=== PATIENT | female | born 1995 | race Caucasian/White ===

== ENCOUNTER 2016-12-13 07:36 | Emergency (ER) | payer SELFPAY ==
[2016-12-13 07:58] VITALS: BP 136/97
--- NOTE | 2016-12-13 08:39 | RAD ---
HISTORY: Subacute injury, left ankle pain COMPARISONS: May 20, 2015 VIEWS: 3, Frontal, lateral, and oblique views of the left ankle FINDINGS: BONE DENSITY: Normal. BONES: There is no displaced fracture. JOINTS: There is no arthropathy. ALIGNMENT: There is no dislocation. SOFT TISSUES: Unremarkable. OTHER FINDINGS: None. IMPRESSION: NO ACUTE OSSEOUS INJURY. IF SYMPTOMS PERSIST, RECOMMEND REPEAT IMAGING.
--- NOTE | 2016-12-13 09:13 | UC ---
Lower Extremity/Ankle HPI - HPI Summary HPI Summary: SLIPPED ON WET STAIRS 2 DAYS AGO INJURING LEFT ANKLE. HAS ORTHO APPT IN 2 DAYS BUT TODAY PAIN WAS WORSE SO CAME IN HERE. - History of Current Complaint Chief Complaint: UCLowerExtremity Stated Complaint: ANKLE INJURY Time Seen by Provider: 12/13/16 08:07 Hx Obtained From: Patient Hx Last Menstrual Period: 11/19/16 Onset/Duration: Sudden Onset, Lasting Days, Still Present Severity Initially: Moderate Severity Currently: Moderate Pain Intensity: 7 Pain Scale Used: 0-10 Numeric Aggravating Factor(s): Standing, Ambulation Alleviating Factor(s): Rest Able to Bear Weight: Yes - WITH PAIN - Allergies/Home Medications Allergies/Adverse Reactions: Allergies Allergy/AdvReac Type Severity Reaction Status Date / Time No Known Allergies Allergy Verified 12/13/16 07:46 Home Medications: Home Medications Acetaminophen TAB* [Tylenol TAB*] 500 mg PO TID PRN 12/13/16 [History Confirmed 12/13/16] PMH/Surg Hx/FS Hx/Imm Hx Endocrine History Of: Denies: Diabetes, Thyroid Disease, Hyperthyroidism, Hypothyroidism Cardiovascular History Of: Reports: Cardiac Disorders - murmur, Hypertension Denies: Pacemaker/ICD Respiratory History Of: Reports: Asthma Neurological History Of: Denies: TIA, Seizures Psychological History Of: Denies: Anxiety, Depression - Surgical History Surgical History: None - Family History Known Family History: Positive: Unknown - ADOPTED - DOES NOT KNOW FAM HX - Social History Alcohol Use: Occasionally Substance Use Type: None Smoking Status (MU): Never Smoked Tobacco Have You Smoked in the Last Year: No Review of Systems Constitutional: Negative Skin: Negative Respiratory: Negative Cardiovascular: Negative Gastrointestinal: Negative Musculoskeletal: Arthralgia, Decreased ROM, Edema All Other Systems Reviewed And Are Negative: Yes Physical Exam Triage Information Reviewed: Yes Appearance: Well-Appearing, No Pain Distress, Well-Nourished Vital Signs: Initial Vital Signs Temp 97.2 F 12/13/16 07:42 Pulse 96 12/13/16 07:42 Resp 16 12/13/16 07:42 BP 166/105 12/13/16 07:42 Pulse Ox 99 12/13/16 07:42 Vital Signs Reviewed: Yes Eyes: Positive: Conjunctiva Clear ENT: Positive: Hearing grossly normal Neck: Positive: Supple Respiratory: Positive: No respiratory distress, No accessory muscle use Cardiovascular: Positive: Pulses Normal Abdomen Description: Positive: Soft Musculoskeletal: Positive: ROM Limited @ - LEFT ANKLE, Edema @ - MILD EDEMA LEFT ANKLE LATERALLY, Other: - TTP LEFT ANKLE LATERAL MALLEOLUS AND MALLEOLAR ZONE Neurological: Positive: Alert Psychological: Positive: Age Appropriate Behavior Skin: Negative: rashes Diagnostics - Radiology LEFT ANKLE XRAY Xray Interpretation: No Acute Changes Radiology Interpretation Completed By: Radiologist Lower Extremity Course/Dx - Course Course Of Treatment: PT REQUESTING CAM BOOT. ADVISED THAT MARIE WRAP AND GELSPLINT WOULD BE SUFFICIENT. CRUTCHES IF NEEDED. PT DECLINES. DOES NOT WANT TO USE CRUTCHES. INSISTS ON CAM BOOT. - Differential Dx/Diagnosis Provider Diagnoses: LEFT ANKLE SPRAIN Discharge - Discharge Plan Condition: Stable Disposition: HOME Patient Education Materials: Ankle Sprain (ED) Forms: *Gen. Provider Communication Referrals: Jenna Humphrey MD [Primary Care Provider] - If Needed Additional Instructions: XRAY TODAY UNREMARKABLE. KEEP YOUR ORTHO FOLLOW-UP IN 2 DAYS.
== END 2016-12-13 09:21 | disposition home or self-care (01) ==
LOC: UCEAST 07:36
DX: S93.402A Sprain of unspecified ligament of left ankle, initial encounter (principal); W01.0XXA Fall on same level from slipping, tripping and stumbling without subsequent striking against object, initial encounter; Y93.9 Activity, unspecified; Y92.9 Unspecified place or not applicable; R01.1 Cardiac murmur, unspecified; I10 Essential (primary) hypertension; J45.909 Unspecified asthma, uncomplicated
CPT/HCPCS: 99213; G0463

== ENCOUNTER 2017-05-04 09:19 | Emergency (ER) | payer OTHER ==
[2017-05-04 09:38] VITALS: BP 138/77
--- NOTE | 2017-05-04 12:03 | ED ---
Shashank Arias Alfonso, scribed for Charles Dominguez MD on 05/04/17 at 1122 . Skin Complaint - HPI Summary HPI Summary: This patient is a 21 year old F presenting to [facility] with a chief complaint of low back erythema at a previous I&D site since earlier today. She reports being started on a course of Keflex before I&D. The cyst was I&D by a scrubber system attendant at Dr. Hill office two days ago. She denies packing in the wound. She states no cultures were obtained after the I&D. The patient rates the pain 3/10 in severity. Symptoms alleviated by nothing. Patient reports insomnia. - History of Current Complaint Chief Complaint: EDGeneral Time Seen by Provider: 05/04/17 11:15 Stated Complaint: PAIN/CYST ON TAIL BONE Hx Obtained From: Patient Onset/Duration: Started Hours Ago, Still Present Timing: Constant Current Severity: Moderate Pain Intensity: 3 Pain Scale Used: 0-10 Numeric Skin Location: Other: - low back Character: Redness Alleviating Symptom(s): Nothing Related History: Other: - I&D two days ago - Allergy/Home Medications Allergies/Adverse Reactions: Allergies Allergy/AdvReac Type Severity Reaction Status Date / Time No Known Allergies Allergy Verified 12/13/16 07:46 PMH/Surg Hx/FS Hx/Imm Hx Endocrine/Hematology History: Denies: Hx Diabetes, Hx Thyroid Disease Cardiovascular History: Reports: Hx Hypertension, Other Cardiovascular Problems/ Disorders - HEART MURMUR Denies: Hx Hypercholesterolemia, Hx Pacemaker/ICD, Hx Peripheral Vascular Disease Respiratory History: Reports: Hx Asthma Musculoskeletal History: Denies: Hx Arthritis, Hx Osteoporosis Sensory History: Denies: Hx Cataracts, Hx Contacts or Glasses, Hx Glaucoma, Hx Hearing Aid Opthamlomology History: Denies: Hx Cataracts, Hx Contacts or Glasses, Hx Glaucoma Neurological History: Denies: Hx Headaches, Hx Seizures, Hx Transient Ischemic Attacks (TIA) Psychiatric History: Denies: Hx Anxiety, Hx Depression, Hx Panic Disorder Infectious Disease History: No Infectious Disease History: Denies: Hx Clostridium Difficile, Hx Hepatitis, Hx Human Immunodeficiency Virus (HIV), Hx of Known/Suspected MRSA, Hx Shingles, Hx Tuberculosis, Hx Known/ Suspected VRE, Hx Known/Suspected VRSA, History Other Infectious Disease, Traveled Outside the [place] in Last 30 Days - Family History Known Family History: Positive: Unknown - ADOPTED - DOES NOT KNOW FAM HX - Social History Alcohol Use: Occasionally Substance Use Type: Reports: None Smoking Status (MU): Never Smoked Tobacco Have You Smoked in the Last Year: No Review of Systems Negative: Fever Positive: Other - Low back erythema at a previous I&D site Neurological: Other - Insomnia All Other Systems Reviewed And Are Negative: Yes Physical Exam Triage Information Reviewed: Yes Vital Signs On Initial Exam: Initial Vitals Temp Pulse Resp BP Pulse Ox 97.4 F 91 20 138/77 99 05/04/17 09:35 05/04/17 09:35 05/04/17 09:35 05/04/17 09:35 05/04/17 09:35 Vital Signs Reviewed: Yes Appearance: Positive: Well-Appearing, No Pain Distress, Obese Skin: Positive: Warm, Skin Color Reflects Adequate Perfusion, Dry, Other - pilonidal cyst which is draining and surrounded by 8 cm of skin erythema which is tender. Head/Face: Positive: Normal Head/Face Inspection Eyes: Positive: Normal ENT: Positive: Normal ENT inspection Neck: Positive: Supple, Nontender Respiratory/Lung Sounds: Positive: Clear to Auscultation, Breath Sounds Present Cardiovascular: Positive: RRR Abdomen Description: Positive: Nontender, Soft Bowel Sounds: Positive: Present Musculoskeletal: Positive: Normal Neurological: Positive: Normal, Sensory/Motor Intact, Alert, Oriented to Person Place, Time, CN Intact II-III Psychiatric: Positive: Normal, Affect/Mood Appropriate Diagnostics - Vital Signs Vital Signs Temp Pulse Resp BP Pulse Ox 05/04/17 09:35 97.4 F 91 20 138/77 99 - Laboratory Lab Statement: Any lab studies that have been ordered have been reviewed, and results considered in the medical decision making process. Course/Dx - Course Course Of Treatment: Ms. Carlson was started on Keflex on Sunday, drained (no C&S ) on Sunday and now has a nonfluctuant cyst area with surrounding cellulitis. I will switch her to Bactrim. - Diagnoses Provider Diagnoses: Cellulitis, Pilonidal cyst Discharge - Discharge Plan Condition: Stable Disposition: HOME Prescriptions: HYDROcodone/ACETAMIN 5-325 MG* [[place] 5-325 TAB*] 1 tab PO Q6H PRN #20 tab MDD 4 PRN Reason: Pain Sulfamethox/Trimethoprim DS* [Bactrim DS 800/160 TAB*] 1 tab PO BID #20 tab Patient Education Materials: Cellulitis (ED), Pilonidal Cyst (ED) Referrals: [facility] [Outside] - 3 Days [facility] [Provider Group] - 3 Days Additional Instructions: RETURN TO THE EMERGENCY DEPARTMENT FOR CHANGING OR WORSENING SYMPTOMS. The documentation as recorded by the Shashank hampton Alfonso accurately reflects the service I personally performed and the decisions made by me, Charles Dominguez MD.
== END 2017-05-04 11:46 | disposition home or self-care (01) ==
LOC: ED 09:19
DX: L03.312 Cellulitis of back [any part except buttock and flank] (principal); I10 Essential (primary) hypertension; L05.91 Pilonidal cyst without abscess
CPT/HCPCS: 99281

== ENCOUNTER 2017-05-05 10:24 | Emergency (ER) | payer OTHER ==
[2017-05-05] MEDS ORDERED: Cephalexin CAP* 500 MG PO ONE ×2 (12:36)
--- NOTE | 2017-05-05 12:39 | ED ---
Skin Complaint - HPI Summary HPI Summary: 21 female presents to ED with complaint of low back erythema and pain at previous I&D site, pilonidal area. Reports being started on Keflex before I&D that occurred on Sunday. The cyst was I&D by a cloth desizing range operator chief at Dr Quiñones's office two days ago. She denies having the wound packed, is nervous it has to be re-lanced. Patient states she was here also last night and given an additional antibiotic, bactri. States the pain is worse at night when laying on it. No cultures obtained after ID. 09/01 pain currently. States she has had some improvement with erythema and pain starting a few hours ago. - History of Current Complaint Chief Complaint: EDGeneral Time Seen by Provider: 05/05/17 10:43 Stated Complaint: CYST-HERE YESTERDAY FOR SAME THING Hx Obtained From: Patient Hx Last Menstrual Period: 11/19/16 Onset/Duration: Started Days Ago, Still Present Skin Exposure Onset/Duration: Days Ago Timing: Constant Onset Severity: Moderate Current Severity: Moderate Pain Intensity: 3 Pain Scale Used: 0-10 Numeric Skin Location: Discrete - pilonidal cleft Character: Pain, Redness Aggravating Symptom(s): Touch - laying on it Alleviating Symptom(s): Treatment CLINICAL OUTCOMES MANAGER: - keflex, ID and bactrim Associated Signs & Symptoms: Negative - Allergy/Home Medications Allergies/Adverse Reactions: Allergies Allergy/AdvReac Type Severity Reaction Status Date / Time No Known Allergies Allergy Verified 12/13/16 07:46 PMH/Surg Hx/FS Hx/Imm Hx Endocrine/Hematology History: Denies: Hx Diabetes, Hx Thyroid Disease Cardiovascular History: Reports: Hx Hypertension, Other Cardiovascular Problems/ Disorders - HEART MURMUR Denies: Hx Hypercholesterolemia, Hx Pacemaker/ICD, Hx Peripheral Vascular Disease Respiratory History: Reports: Hx Asthma Musculoskeletal History: Denies: Hx Arthritis, Hx Osteoporosis Sensory History: Denies: Hx Cataracts, Hx Contacts or Glasses, Hx Glaucoma, Hx Hearing Aid Opthamlomology History: Denies: Hx Cataracts, Hx Contacts or Glasses, Hx Glaucoma Neurological History: Denies: Hx Headaches, Hx Seizures, Hx Transient Ischemic Attacks (TIA) Psychiatric History: Denies: Hx Anxiety, Hx Depression, Hx Panic Disorder - Surgical History Surgery Procedure, Year, and Place: n/a - Immunization History Immunizations Up to Date: Yes Infectious Disease History: No Infectious Disease History: Denies: Hx Clostridium Difficile, Hx Hepatitis, Hx Human Immunodeficiency Virus (HIV), Hx of Known/Suspected MRSA, Hx Shingles, Hx Tuberculosis, Hx Known/ Suspected VRE, Hx Known/Suspected VRSA, History Other Infectious Disease, Traveled Outside the [place] in Last 30 Days - Family History Known Family History: Positive: Unknown - ADOPTED - DOES NOT KNOW FAM HX - Social History Alcohol Use: Occasionally Substance Use Type: Reports: None Smoking Status (MU): Never Smoked Tobacco Have You Smoked in the Last Year: No Review of Systems Constitutional: Negative Cardiovascular: Negative Respiratory: Negative Gastrointestinal: Negative Positive: Other - erythema and pain at pilonidal cleft area All Other Systems Reviewed And Are Negative: Yes Physical Exam Triage Information Reviewed: Yes Vital Signs On Initial Exam: Initial Vitals Temp Pulse Resp BP Pulse Ox 96.9 F 103 20 125/78 98 05/05/17 10:27 05/05/17 10:27 05/05/17 10:27 05/05/17 10:27 05/05/17 10:27 Vital Signs Reviewed: Yes Appearance: Positive: Well-Appearing, No Pain Distress, Well-Nourished Skin: Positive: Warm, Skin Color Reflects Adequate Perfusion, Dry, Other - pilonidal cyst , no drainage appreciated, non fluctuant, firm and surrounded by 4 cm of skin erythema which is mildy tender. per patient is much less tender than what it was. Negative: Cold, Numb, Cyanosis @ Head/Face: Positive: Normal Head/Face Inspection Eyes: Positive: Conjunctiva Clear ENT: Positive: Hearing grossly normal Neck: Positive: Supple, Nontender, No Lymphadenopathy Respiratory/Lung Sounds: Positive: Clear to Auscultation, Breath Sounds Present. Negative: Rales, Rhonchi, Wheezes Cardiovascular: Positive: Normal, RRR, Pulses are Symmetrical in both Upper and Lower Extremities, Murmur - physiologic, chronic. Negative: Rub Abdomen Description: Positive: Nontender, Soft Bowel Sounds: Positive: Present Musculoskeletal: Positive: Normal, Strength/ROM Intact Neurological: Positive: Normal, Sensory/Motor Intact, Alert, Oriented to Person Place, Time, NV Bundle Intact Distally, Normal Gait - Lynn Coma Scale Coma Scale Total: 15 Diagnostics - Vital Signs Vital Signs Temp Pulse Resp BP Pulse Ox 05/05/17 10:27 96.9 F 103 20 125/78 98 - Laboratory Lab Statement: Any lab studies that have been ordered have been reviewed, and results considered in the medical decision making process. Course/Dx - Course Course Of Treatment: patient was reassurred that this did not appear to need any more I&D at this time, firm and non fluctuant. appears to be improving significantly when compared to pictures on cell phone. mike agrees. encouraged to continue bactrim as she only took two pills so far. also told to continue keflex, warm compresses and keep clean and dry. pain medication as prescribed. follow up appointment with derm on 05/14. offerred US for confirmation however patient refused. return if erythema, pain or drainage/ abscess returns or worsens. aware of worsening signs and symptoms to watch out for. educated on these worsening signs and symptoms and when to return. normal vitals and PE findings. erythema much improved from prior pictures and yesterdays report. continue meds and follow up. - Differential Diagnoses - Skin Complaint Differential Diagnoses: Abscess, Cellulitis, Urticaria, Other - pilonidal cyst - Diagnoses Provider Diagnoses: Cellulitis, Pilonidal cyst Discharge - Discharge Plan Condition: Stable Disposition: HOME Patient Education Materials: Cellulitis (ED), Pilonidal Cyst (ED) Referrals: No Primary Care Phys,NOPCP [Primary Care Provider] - [facility] [Outside] Additional Instructions: Take one more keflex and bactrim tonight before bed. Continue taking both medications as prescribed until all doses are finished. Continue pain medications as needed for pain. Drink plenty of fluids. Continue warm compresses. Keep clean and dry. Follow up with dermatology on your appointment on 05/14. Return sooner if symptoms return, worsen or are not improving.
[2017-05-05 12:56] VITALS: BP 116/71
== END 2017-05-05 12:54 | disposition home or self-care (01) ==
LOC: ED 10:24
DX: L03.90 Cellulitis, unspecified (principal); L05.91 Pilonidal cyst without abscess; M54.5 Low back pain
CPT/HCPCS: 99282; A9270-GY

== ENCOUNTER 2017-12-03 09:33 | Emergency (ER) | payer OTHER ==
[2017-12-03 09:52] VITALS: BP 133/93
--- NOTE | 2017-12-03 10:15 | RAD ---
HISTORY: Right thumb pain COMPARISONS: Right hand dated July 07, 2010 VIEWS: 3, Frontal, lateral, and oblique views of the first digit of the right hand FINDINGS: BONE DENSITY: Normal. BONES: There is no displaced fracture. JOINTS: There is no arthropathy. ALIGNMENT: There is no dislocation. SOFT TISSUES: Unremarkable. OTHER FINDINGS: None. IMPRESSION: NO ACUTE OSSEOUS INJURY. IF SYMPTOMS PERSIST, RECOMMEND REPEAT IMAGING.
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
== END 2017-12-03 10:13 | disposition home or self-care (01) ==
LOC: UCEAST 09:33
DX: S63.601A Unspecified sprain of right thumb, initial encounter (principal); Y04.0XXA Assault by unarmed brawl or fight, initial encounter; Y93.9 Activity, unspecified; Y92.215 Trade school as the place of occurrence of the external cause; Y99.0 Civilian activity done for income or pay; R03.0 Elevated blood-pressure reading, without diagnosis of hypertension; R01.1 Cardiac murmur, unspecified
CPT/HCPCS: 99213; G0463

== ENCOUNTER 2018-01-12 21:36 | Emergency (ER) | payer SELFPAY | END 2018-01-12 22:00 | disposition left against medical advice (07) | LOC: UCEAST 21:36 | DX: S61.219A Laceration without foreign body of unspecified finger without damage to nail, initial encounter (principal); X58.XXXA Exposure to other specified factors, initial encounter; Y93.9 Activity, unspecified; Y92.9 Unspecified place or not applicable; Z53.21 Procedure and treatment not carried out due to patient leaving prior to being seen by health care provider ==

== ENCOUNTER 2018-02-07 14:55 | Emergency (ER) | payer OTHER ==
[2018-02-07 15:22] VITALS: BP 138/88
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
--- NOTE | 2018-02-08 15:24 | UC ---
- Progress Note Progress Note: Please call pt and let her know that her Hepatitis B and C as well as HIV are NEGATIVE. Her hepatitis B ANTIBODY was negative. This means that if she had the hepatitis vaccination series as a child, she did not convert. She should follow up with her PCP to likely undergo another series of Hep B immunization. This finding is NOT due to her recent blood exposure. Course/Dx - Diagnoses Provider Diagnoses: Exposure to blood Discharge - Sign-Out/Discharge Documenting (check all that apply): Post-Discharge Follow Up - Discharge Plan Condition: Stable Disposition: HOME Forms: *Gen. Provider Communication Referrals: Guillermo Robledo MD [Primary Care Provider] - Additional Instructions: Will call with any ABNORMAL RESULTS only - Billing Disposition and Condition Condition: STABLE Disposition: Home
== END 2018-02-07 16:45 | disposition home or self-care (01) ==
LOC: UCEAST 14:55
DX: Z77.21 Contact with and (suspected) exposure to potentially hazardous body fluids (principal)
CPT/HCPCS: 36415; 86703; 86706; 86803; 87340; 99211; G0463

== ENCOUNTER 2018-04-08 07:19 | Day surgery (SDC) | payer OTHER ==
[~2018-04-08 07:19] MED LIST: Buffered Lidocaine 0.9% SYRIN* 5 ML/SYR SYRINGE INTRADERM ONE; Dexamethasone IV* 4 MG/ML 1 ML (4 MG) IV SLOW PU ONE; Famotidine IV* 10 MG/ML 2 ML (20 mg) IV ONE
[2018-04-08] MEDS ORDERED: ceFAZolin 1 GM ADVAN(*) 1 GM ADDV.VIAL IVPB ONE (07:20)
[2018-04-08] MEDS ORDERED: ceFAZolin 2 GM in NS PREMIX(*) 2 GM/100 ML BAG IVPB ONE (07:20)
[2018-04-08] MEDS ORDERED: Famotidine IV* 10 MG/ML 2 ML (20 mg) ONE (07:50)
[2018-04-08] MEDS ORDERED: Dexamethasone IV* 4 MG/ML 1 ML (4 MG) ONE (07:50)
[2018-04-08] MEDS ORDERED: ROPIVACAINE 5 MG/ML 30 ML BTL (0.5%) ONE (08:45)
[2018-04-08] MEDS ORDERED: Lidocaine 1% INJ* 10 MG/ML 30 ML SDV ONE (08:45)
[2018-04-08] MEDS ORDERED: KETAMINE HCL* 50 MG/ML 10 ML VIAL ONE (08:48)
[2018-04-08] MEDS ORDERED: Midazolam* 1 MG/ML 2 ML VIAL (2 MG) ONE (08:49)
[2018-04-08] MEDS ORDERED: fentaNYL* 50 MCG/ML 2 ML VIAL (100 MCG VIAL) ONE ×2 (12:13→12:54)
[2018-04-08] MEDS ORDERED: HYDROmorphone INJ1* 1 MG/ML SYRINGE IV PRN (12:38)
[2018-04-08] MEDS ORDERED: Naloxone* 0.4 MG/ML 1 ML VIAL IV PRN (12:38)
[2018-04-08] MEDS ORDERED: DiMENhydriNATE IV* 50 MG/ML VIAL IV PUSH PRN (12:38)
[2018-04-08] MEDS ORDERED: fentaNYL* 50 MCG/ML 2 ML VIAL (100 MCG VIAL) IV PRN (12:38)
[2018-04-08] MEDS ORDERED: Ondansetron INJ* 2 MG/ML VIAL ONE (12:41)
[2018-04-08] MEDS ORDERED: Ketorolac INJ* 30 MG/ML 1 ML VIAL ONE ×2 (12:41→15:24)
[2018-04-08] MEDS ORDERED: Propofol* 10 MG/ML 20 ML BTL IV PUSH ONE (12:42)
[2018-04-08 14:17] VITALS: BP 123/86
--- NOTE | 2018-04-09 11:11 | OP ---
DATE OF OPERATION: 04/08/18 - [facility] DATE OF : 89 SURGEON: Corby Alatorre MD RADIOACTIVE WASTE DISPOSAL DISPATCHER: HEATHER Crystal ANESTHESIOLOGIST: Dr. Gregorio. ANESTHESIA: General. PRE-OP DIAGNOSIS: Right thumb MCP chronic insufficiency, ulnar collateral ligament insufficiency. POST-OP DIAGNOSIS: Right thumb MCP chronic insufficiency, ulnar collateral ligament insufficiency. OPERATIVE PROCEDURE: Repair of right thumb metacarpophalangeal joint ulnar collateral ligament. ESTIMATED BLOOD LOSS: 2 mL. COMPLICATIONS: None. FINDINGS: See above and below. DESCRIPTION OF PROCEDURE: Maida was seen in the preoperative holding area. The correct side, site, and procedure were identified. We came back to the operating room. The arm was prepped and draped in the usual fashion. A time- out was performed. The arm was exsanguinated with the Esmarch and the tourniquet inflated to 250 mmHg. A curvilinear incision was made over the ulnar aspect of the right thumb MCP joint. Dissection was carried down longitudinally preserving the traversing sensory nerves. We had full thickness flaps raised off the adductor aponeurosis. This was incised in line with its fibers. I then retracted that out of the way and inspected the ulnar collateral ligament. It had torn off its insertion and assumed more vertical orientation and to the volar plate. I went ahead and released it off the volar plate. I was then able to rotate it to its more anatomic footprint as the fiber still appeared to be out to length. I placed two Mini Mitek suture anchors in the ulnar aspect of the proximal phalanx base. I whipstitched up into the ulnar collateral ligament and then sewed the ligament down to the bone in standard fashion. This provided excellent stability at 0 and 30 degrees. I then augmented the repair with a couple of free 2-0 Ethibond sutures sewing the palmar aspect of the ligament to the volar plate. At this point, everything was looking good. So, we irrigated out the wound. The adductor aponeurosis was closed with 4-0 Ethibond. Skin was closed with 4-0 nylon. Ropivacaine was injected in the operative field. The wound was dressed and a thumb spica splint was applied. Tourniquet was deflated and she was woken up and taken to the recovery room in stable condition. [id number]/[facility] #: [id number] MTDD
== END 2018-04-08 14:18 | disposition home or self-care (01) ==
LOC: OR 07:19
PROVIDERS: ATTEND Orthopaedic Surgery Hand Surgery
DX: S63.641A Sprain of metacarpophalangeal joint of right thumb, initial encounter (principal); Z68.42 Body mass index [BMI] 45.0-49.9, adult; I10 Essential (primary) hypertension; J45.909 Unspecified asthma, uncomplicated; I35.0 Nonrheumatic aortic (valve) stenosis; X58.XXXA Exposure to other specified factors, initial encounter; Y92.9 Unspecified place or not applicable; Y99.9 Unspecified external cause status
CPT/HCPCS: 81025; C1713; J0690; J1100; J1885; J2250; J2405; J2704; J2795; J3010

== ENCOUNTER 2018-08-28 14:50 | Emergency (ER) | payer OTHER ==
--- NOTE | 2018-08-28 15:03 | UC ---
FLU HPI - HPI Summary HPI Summary: 23 y/o female presents to the urgent care c/o sinus congestion w/ yellowish nasal discharge and productive cough w/ yellowish phlegm for the past week. Her boyfriend was Dx w/ Bronchitis last night. Pt reports Hx of Asthma and she started with wheezing and mild SOB about 2 days ago. She has been using her albuterol inhaler which has now w/o any improvement. Pt denies fever, dizziness, VILLEGAS, palpitation, chest pain, abdominal pain, N/V/D. - History of Current Complaint Stated Complaint: FLU LIKE SYM Time Seen by Provider: 08/28/18 15:01 Hx Obtained From: Patient Hx Last Menstrual Period: 02/04/18 ?: No - pt declines test Onset/Duration: Gradual Onset, Lasting Weeks - 1 week Severity Currently: Mild Severity Initially: Moderate Pain Intensity: 2 - body ahces Pain Scale Used: 0-10 Numeric Associated Signs & Symptoms: Positive: Fever - at the beginning of symptoms, Myalgia, Cough - productive with yellowihs phlegm, Nasal Congestion - yellowish - Risk Factors Influenza Risk Factors: Negative - Allergy/Home Medications Allergies/Adverse Reactions: Allergies Allergy/AdvReac Type Severity Reaction Status Date / Time apple Allergy Mild Hives Verified 08/28/18 15:09 banana Allergy Mild Hives Verified 08/28/18 15:09 lisinopril Allergy Mild Swelling Verified 08/28/18 15:09 Home Medications: Home Medications metFORMIN* [Glucophage 500 MG TAB *] 1 tab PO BID 08/28/18 [History Confirmed ] PMH/Surg Hx/FS Hx/Imm Hx Previously Healthy: Yes Other Endocrine History: PCOS Respiratory History: Asthma - Surgical History Surgical History: None Surgery Procedure, Year, and Place: patient denies - Family History Known Family History: Positive: Unknown - ADOPTED - DOES NOT KNOW FAM HX, Diabetes - Social History Occupation: Employed Full-time Lives: With Family Alcohol Use: Occasionally Substance Use Type: None Smoking Status (MU): Never Smoked Tobacco Have You Smoked in the Last Year: No - Immunization History Most Recent Influenza Vaccination: 04/28/17 Review of Systems All Other Systems Reviewed And Are Negative: Yes Constitutional: Positive: Fever - at the begining of symptoms, Fatigue, Other - body aches Skin: Positive: Negative Eyes: Positive: Negative ENT: Positive: Nasal Discharge - yellowish, Sinus Congestion Respiratory: Positive: Cough - productive w/ yellowish phlegm, Other - wheezing Cardiovascular: Positive: Negative Gastrointestinal: Positive: Negative Genitourinary: Positive: Negative Motor: Positive: Negative Neurovascular: Positive: Negative Musculoskeletal: Positive: Negative, Myalgia Neurological: Positive: Negative Psychological: Positive: Negative Is Patient Immunocompromised?: No Physical Exam - Summary Physical Exam Summary: Vital Signs Reviewed: Yes General: well developed, well nourished obese female sitting in the examining table w/o any apparent distress Eyes: Positive: Conjunctiva Clear - PERRLA, EOMI, fundi grossly normal ENT: Positive: Normal ENT inspection, Hearing grossly normal, Pharynx normal, Nasal congestion - edematous and erythematous nasal mucosa, Nasal drainage - yellowish drainage, TMs normal. Negative: Tonsillar swelling, Tonsillar exudate Neck: Positive: Supple, Nontender, No Lymphadenopathy Respiratory: no orthopnea or dyspnea. Able to speak in full sentences, no retractions or accessory muscle use, no tripod position, stridor, or head bobbing. Positive breath sounds bilaterally. diffuse scattered wheezing and rhonchi on b/L lungs, no crackles or rales. Cardiovascular: Positive: RRR, No Murmur, Pulses Normal, Brisk Capillary Refill Abdomen Description: Positive: Nontender, No Organomegaly, Soft. Negative: CVA Tenderness (R), CVA Tenderness (L) Bowel Sounds: Positive: Present Musculoskeletal Exam: Normal Musculoskeletal: Positive: Strength Intact, ROM Intact, No Edema Neurological Exam: Normal Psychological Exam: Normal Skin Exam: Normal Triage Information Reviewed: Yes Flu Course/Dx - Course Course Of Treatment: 23 y/o female presents to the urgent care c/o sinus congestion w/ yellowish nasal discharge and productive cough w/ yellowish phlegm for the past week. Her boyfriend was Dx w/ Bronchitis last night. Pt reports Hx of Asthma and she started with wheezing and mild SOB about 2 days ago. She has been using her albuterol inhaler which has now w/o any improvement. Pt denies fever, dizziness, VILLEGAS, palpitation, chest pain, abdominal pain, N/V/D. Hx obtained. Pt w/diffuse scattered wheezing and rhonchi on b/L lungs, O2Sat:98%. Chest X-ray ordered, Impression: No acute cardiopulmonary disease observed by radiologist. Pt given Prednisone PO and Duoneb Treatment to alleviate symptoms. Pt tolerated well treatment and lungs improved,and wheezing resolved. Patient prescribed doxycycline PO, Prednisone taper dose, Albuterol neb. and given a script for nebulizer machine. The patient was recommended to increase fluid intake. Take medications as recommended. Pt advised to returned to the clinic or f/u w/ her PCP if symptoms do not improve. All D/C instructions explained. Patient understood and agree w/ plan of care. Pt left clinic hemodynamically stable , A&OX3 - Differential Dx/Diagnosis Differential Diagnosis/HQI/PQRI: Bronchitis, Influenza, Upper Respiratory Infection Provider Diagnosis: Bronchitis, Mild persistent asthma with acute bronchitis and acute exacerbation Discharge - Sign-Out/Discharge Documenting (check all that apply): Patient Departure - d/c home All imaging exams completed and their final reports reviewed: Yes - Discharge Plan Condition: Stable Disposition: HOME Prescriptions: Albuterol 2.5MG/3ML (0.083%)* [Ventolin 2.5 MG/3 ML NEB.KANG*] 2.5 mg INH Q6H #1 box Albuterol HFA INHALER* [Ventolin HFA Inhaler*] 1 - 2 puff INH Q6H PRN #1 mdi PRN Reason: Wheezing DOXYcycline CAP(*) [DOXYcycline 100MG CAP(*)] 100 mg PO BID #20 cap predniSONE TAB* [Deltasone 20 MG TAB*] 20 mg PO DAILY #8 tab Patient Education Materials: Asthma (ED), Acute Bronchitis (ED) Referrals: Juan Pablo Robledo DO [Primary Care Provider] - 3 Days Additional Instructions: 1- Take Prednisone PO taper dose as directed starting tomorrow. First loading dose given today. 2- Take Doxycycline PO as directed full course of antibiotic to avoid resistance. 2-Use the Albuterol nebulizer treatment or the Albuterol inhaler with the aerochamber to alleviate SOB, and wheezing as directed . Increase fluid intake, rest and eat well. 3- If symptoms do not improve or worsen or your develop SOB with fever and severe wheezing please go immediately to the ER further evaluation and treatment. 4- F/u with your PCP in 2-3 days for further management on your Asthma - Billing Disposition and Condition Condition: STABLE Disposition: Home
[2018-08-28 15:07] VITALS: BP 137/76
[2018-08-28] MEDS ORDERED: predniSONE TAB* 20 MG PO ONE (15:17)
[2018-08-28] MEDS ORDERED: Albuterol/Ipratropium NEB.SOL* Albuterol 2.5 MG/Ipratropium 0.5 MG 3 ML INH ONE (15:18)
== END 2018-08-28 16:25 | disposition home or self-care (01) ==
LOC: UCEAST 14:50
DX: J45.31 Mild persistent asthma with (acute) exacerbation (principal); J20.9 Acute bronchitis, unspecified; M79.10 Myalgia, unspecified site; E66.9 Obesity, unspecified; J34.89 Other specified disorders of nose and nasal sinuses; Z91.09 Other allergy status, other than to drugs and biological substances; Z88.8 Allergy status to other drugs, medicaments and biological substances
CPT/HCPCS: 71046; 99212; A9270-GY; G0463; J7512

== ENCOUNTER 2018-09-11 19:40 | Emergency (ER) | payer OTHER ==
[2018-09-11 19:50] VITALS: BP 179/115
[2018-09-11] MEDS ORDERED: Ibuprofen TAB* 400 MG PO ONE (20:03)
--- NOTE | 2018-09-11 20:34 | UC ---
Upper Extremity HPI - HPI Summary HPI Summary: Pt c/o right wrist, elbow and shoulder s/p falling on ice just prior to clinic visit. - History of Current Complaint Chief Complaint: UCUpperExtremity Stated Complaint: WRIST, ELBOW AND SHOULDER INJURY Time Seen by Provider: 09/11/18 19:43 Hx Obtained From: Patient Hx Last Menstrual Period: 08/24/18 ?: No Onset/Duration: Sudden Onset, Lasting Minutes, Still Present Severity Initially: Severe Severity Currently: Severe Pain Intensity: 10 Location Of Pain: Is Discrete @ - right shoulder, Character: Dull, Aching, Throbbing, Stiffness Aggravating Factor(s): Movement Alleviating Factor(s): Rest Associated Signs And Symptoms: Positive: Negative Related History: Dominant Hand Right - Risk Factors Non-Orthopedic Risk Factor: Negative DVT Risk Factors: Negative Septic Arthritis Risk Factor: Negative Compartment Syndrome Risk Factors: Pain - Allergies/Home Medications Allergies/Adverse Reactions: Allergies Allergy/AdvReac Type Severity Reaction Status Date / Time apple Allergy Mild Hives Verified 09/11/18 19:50 banana Allergy Mild Hives Verified 09/11/18 19:50 lisinopril Allergy Mild Swelling Verified 09/11/18 19:50 PMH/Surg Hx/FS Hx/Imm Hx Previously Healthy: Yes - Surgical History Surgical History: Yes Surgery Procedure, Year, and Place: right thumb tlc 2018 - Family History Known Family History: Positive: Unknown - ADOPTED - DOES NOT KNOW FAM HX, Diabetes - Social History Occupation: Employed Full-time Lives: With Family Alcohol Use: Occasionally Substance Use Type: None Smoking Status (MU): Never Smoked Tobacco Have You Smoked in the Last Year: No - Immunization History Most Recent Influenza Vaccination: 04/28/17 Review of Systems All Other Systems Reviewed And Are Negative: Yes Constitutional: Positive: Negative Skin: Positive: Negative Eyes: Positive: Negative ENT: Positive: Negative Respiratory: Positive: Negative Cardiovascular: Positive: Negative Gastrointestinal: Positive: Negative Genitourinary: Positive: Negative Motor: Positive: Decreased ROM, Weakness Neurovascular: Positive: Negative Musculoskeletal: Positive: Arthralgia, Decreased ROM, Myalgia Neurological: Positive: Negative Psychological: Positive: Negative Is Patient Immunocompromised?: No Physical Exam Triage Information Reviewed: Yes Appearance: Pain Distress Vital Signs: Initial Vital Signs Temp 99.8 F 09/11/18 19:46 Pulse 93 09/11/18 19:46 Resp 18 02/20/19 19:46 BP 179/115 09/11/18 19:46 Pulse Ox 100 09/11/18 19:46 Vital Signs Reviewed: Yes Eye Exam: Normal ENT Exam: Normal Dental Exam: Normal Neck exam: Normal Respiratory Exam: Normal Respiratory: Positive: No respiratory distress Musculoskeletal: Positive: Strength Limited @, ROM Limited @ - right, wrist, shoulder and elbow Neurological Exam: Normal Psychological Exam: Normal Skin Exam: Normal Upper Extremity Course/Dx - Course Course Of Treatment: I discussed the xrays with the pt and referred her to her orthodpedic provider, Dr. Alatorre. - Differential Dx/Diagnosis Differential Diagnosis/HQI/PQRI: Contusion, Fracture (Closed), Strain, Sprain Provider Diagnosis: Right wrist injury, Right shoulder injury, Injury of right elbow Discharge - Sign-Out/Discharge Documenting (check all that apply): Patient Departure All imaging exams completed and their final reports reviewed: No - Discharge Plan Condition: Stable Disposition: HOME Patient Education Materials: Shoulder Pain (ED), Wrist Injury (ED), Elbow Sprain (ED) Referrals: Juan Pablo Robledo DO [Primary Care Provider] - - Billing Disposition and Condition Condition: STABLE Disposition: Home
--- NOTE | 2018-09-12 10:15 | UC ---
- Progress Note Progress Note: XRs negative. No change in plan Course/Dx - Diagnoses Provider Diagnoses: Right wrist injury, Right shoulder injury, Injury of right elbow Discharge - Sign-Out/Discharge Documenting (check all that apply): Patient Departure All imaging exams completed and their final reports reviewed: Yes - Discharge Plan Condition: Stable Disposition: HOME Patient Education Materials: Wrist Injury (ED), Elbow Sprain (ED), Shoulder Pain (ED) Referrals: oCrby Alatorre MD [Medical Doctor] - Juan Pablo Robledo DO [Primary Care Provider] - - Billing Disposition and Condition Condition: STABLE Disposition: Home
== END 2018-09-11 21:07 | disposition home or self-care (01) ==
LOC: UCEAST 19:40
DX: S69.91XA Unspecified injury of right wrist, hand and finger(s), initial encounter (principal); S49.91XA Unspecified injury of right shoulder and upper arm, initial encounter; S59.901A Unspecified injury of right elbow, initial encounter; Z88.8 Allergy status to other drugs, medicaments and biological substances; Z91.018 Allergy to other foods; Y92.9 Unspecified place or not applicable
CPT/HCPCS: 99213; A9270-GY; G0463

== ENCOUNTER 2019-05-25 15:39 | Emergency (ER) | payer OTHER ==
[2019-05-25 15:59] VITALS: BP 166/78
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
[2019-05-25] MEDS ORDERED: Ibuprofen TAB* 600 MG PO ONE (16:56)
== END 2019-05-25 17:00 | disposition home or self-care (01) ==
LOC: UCEAST 15:39
DX: S69.91XA Unspecified injury of right wrist, hand and finger(s), initial encounter (principal); W50.0XXA Accidental hit or strike by another person, initial encounter; Y92.9 Unspecified place or not applicable; E11.9 Type 2 diabetes mellitus without complications; Z91.09 Other allergy status, other than to drugs and biological substances; Z88.8 Allergy status to other drugs, medicaments and biological substances
CPT/HCPCS: 99212; G0463

== ENCOUNTER 2019-10-07 16:55 | Emergency (ER) | payer OTHER ==
--- NOTE | 2019-10-07 17:16 | UC ---
Hand/Wrist HPI - HPI Summary HPI Summary: 24 yo female presents with right hand injury. She tells me that about 45min [employer] she was going up the stairs at home and tripped over her cat and jammed her right hand into the staircase. Since that time has had pain and swelling to right hand. She is right handed. Nothing OTC for her symptoms. Denies numbness or tingling. - History Of Current Complaint Stated Complaint: HAND INJURY Time Seen by Provider: 10/07/19 17:16 Hx Obtained From: Patient Hx Last Menstrual Period: 05/21/19 Onset/Duration: Sudden Onset Severity Initially: Moderate Severity Currently: Moderate Pain Intensity: 7 Pain Scale Used: 0-10 Numeric - Allergies/Home Medications Allergies/Adverse Reactions: Allergies Allergy/AdvReac Type Severity Reaction Status Date / Time apple Allergy Mild Hives Verified 05/25/19 15:45 banana Allergy Mild Hives Verified 05/25/19 15:45 lisinopril Allergy Mild Swelling Verified 05/25/19 15:45 Home Medications: Home Medications Loratadine [Claritin 10 MG CAP] 1 tab PO DAILY PRN 05/28/17 [History Confirmed 05/25/19] Albuterol 2.5MG/3ML (0.083%)* [Ventolin 2.5 MG/3 ML NEB.KANG*] 2.5 mg INH Q6H #1 box 08/28/18 [Rx Confirmed 05/25/19] Albuterol HFA INHALER* [Ventolin HFA Inhaler*] 1 - 2 puff INH Q6H PRN #1 mdi 01/08 [Rx Confirmed 05/25/19] metFORMIN* [Glucophage 500 MG TAB *] 1 tab PO BID 08/28/18 [History Confirmed ] PMH/Surg Hx/FS Hx/Imm Hx Endocrine History: Diabetes Respiratory History: Asthma - Surgical History Surgical History: Yes Surgery Procedure, Year, and Place: right thumb tlc 2018 - Family History Known Family History: Positive: Unknown - ADOPTED - DOES NOT KNOW FAM HX - Social History Lives: With Family Alcohol Use: Occasionally Substance Use Type: None Smoking Status (MU): Never Smoked Tobacco Have You Smoked in the Last Year: No - Immunization History Most Recent Influenza Vaccination: 04/28/17 Review of Systems All Other Systems Reviewed And Are Negative: No Constitutional: Positive: Negative Skin: Positive: Negative Respiratory: Positive: Negative Cardiovascular: Positive: Negative Neurovascular: Positive: Negative Musculoskeletal: Positive: Other: - Right hand injury Neurological/Mental Status: Positive: Negative Psychological: Positive: Negative Physical Exam - Summary Physical Exam Summary: GENERAL: NAD. WDWN. No pain distress. SKIN: No rashes, sores, lesions, or open wounds. CHEST: No accessory muscle use. Breathing comfortably and in no distress. CV: Pulses intact radial and ulnar. Cap refill <2seconds MSK: RIGHT HAND: Mild edema and ttp about dorsal aspect of right hand worse on the ulnar aspect. TTP 5th MCP and 4th MCP. Decreased extension of 4th and 5th digits MCP and PIP due to pain. No snuffbox tenderness. RIGHT WRIST FROM NEURO: Alert. Sensations intact hand and all fingers. PSYCH: Age appropriate behavior. Triage Information Reviewed: Yes Vital Signs: Vital Signs: Temp Pulse Resp BP Pulse Ox 98.4 F 95 18 137/77 100 10/07/19 17:40 10/07/19 17:40 10/07/19 17:40 10/07/19 17:40 10/07/19 17:40 Vital Signs Reviewed: Yes Diagnostics - Radiology Hand XR Radiology Interpretation Completed By: ED Physician Summary of Radiographic Findings: No fx Hand/Wrist Course/Dx - Course Course Of Treatment: XR wet read negative for fx. Suspect sprain/contusion. She was placed in a finger splint for comfort and advised to RICE and f/u with Orthopedics if symptoms do not improve within 7 days - Differential Dx/Diagnosis Provider Diagnosis: Hand sprain Discharge ED - Sign-Out/Discharge Documenting (check all that apply): Patient Departure All imaging exams completed and their final reports reviewed: No - Discharge Plan Condition: Stable Disposition: HOME Patient Education Materials: Contusion in Adults (ED), Hand Sprain (ED) Referrals: Mason Dickey NP [Primary Care Provider] - Corby Alatorre MD [Medical Doctor] - If Needed Additional Instructions: The X-ray today appears normal without fracture - the radiologist will read this in the morning and if there is a change to your treatment plan, we will let you know. 1) Rest, Ice, and elevate your hand to decrease pain and swelling 2) Use the finger splint for comfort 3) If your symptoms do not improve in a few days - I recommend that you follow up with Orthopedics for further evaluation. - Billing Disposition and Condition Condition: STABLE Disposition: Home
[2019-10-07 17:42] VITALS: BP 137/77
--- NOTE | 2019-10-07 19:48 | UC ---
- Progress Note Progress Note: wet read correct Course/Dx - Diagnoses Provider Diagnoses: Hand sprain Discharge ED - Sign-Out/Discharge Documenting (check all that apply): Post-Discharge Follow Up All imaging exams completed and their final reports reviewed: Yes - Discharge Plan Condition: Stable Disposition: HOME Patient Education Materials: Contusion in Adults (ED), Hand Sprain (ED) Referrals: Corby Alatorre MD [Medical Doctor] - If Needed Mason Dickey NP [Primary Care Provider] - Additional Instructions: The X-ray today appears normal without fracture - the radiologist will read this in the morning and if there is a change to your treatment plan, we will let you know. 1) Rest, Ice, and elevate your hand to decrease pain and swelling 2) Use the finger splint for comfort 3) If your symptoms do not improve in a few days - I recommend that you follow up with Orthopedics for further evaluation. - Billing Disposition and Condition Condition: STABLE Disposition: Home
== END 2019-10-07 18:36 | disposition home or self-care (01) ==
LOC: UCEAST 16:55
DX: S63.91XA Sprain of unspecified part of right wrist and hand, initial encounter (principal); E11.9 Type 2 diabetes mellitus without complications; J45.909 Unspecified asthma, uncomplicated; Z88.8 Allergy status to other drugs, medicaments and biological substances; Z91.018 Allergy to other foods; W55.09XA Other contact with cat, initial encounter; Y92.009 Unspecified place in unspecified non-institutional (private) residence as the place of occurrence of the external cause; Z79.84 Long term (current) use of oral hypoglycemic drugs
CPT/HCPCS: 99212; G0463